=== PATIENT | female | born 1995 | race Two or more races ===

== ENCOUNTER 2019-09-12 00:01 | Emergency (ER) | payer OTHER ==
[~2019-09-12] VITALS: Ht 165.1 cm; Wt 52.2 kg
--- NOTE | 2019-09-12 00:03 | NUR ---
Dr. Gregory at bedside for MSE
[2019-09-12 00:42] LABS: BASOPHILS # (AUTO) 0.1 K/uL (0.0-8.0); BASOPHILS % (AUTO) 0.8 % (0.0-2.0); EOSINOPHILS # (AUTO) 0.1 K/uL (0.0-0.7); EOSINOPHILS % (AUTO) 0.6 % (0.0-7.0); HEMATOCRIT 41.3 % (31.2-41.9); HEMOGLOBIN 14.1 g/dL (10.9-14.3); LYMPHOCYTES # (AUTO) 1.8 K/uL (20.0-40.0); LYMPHOCYTES % (AUTO) 14.3 % (20.5-51.5); MEAN CORPUSCULAR HEMOGLOBIN 30.7 uug (24.7-32.8); MEAN CORPUSCULAR HGB CONC 34 g/dL (32.3-35.6); MEAN CORPUSCULAR VOLUME 89.9 fL (75.5-95.3); MONOCYTES # (AUTO) 1.8 K/uL (2.0-10.0); MONOCYTES % (AUTO) 14.6 % (0.0-11.0); NEUTROPHILS # (AUTO) 8.8 K/uL (1.8-8.9); NEUTROPHILS % (AUTO) 69.7 % (38.5-71.5); PLATELET COUNT (AUTO) 373 K/uL (179-408); RED BLOOD CELL COUNT(AUTO) 4.59 MIL/uL (3.63-4.92); WHITE BLOOD COUNT (AUTO) 12.6 K/uL (3.8-11.8)
[2019-09-12 00:43] LABS: CARBON DIOXIDE 30 mmol/L (21-32); CHLORIDE 101 mmol/L (98-107); CREATININE 0.9 mg/dL (0.6-1.3); GLUCOSE 72 mg/dL (74-106); POTASSIUM 4.4 mmol/L (3.5-5.1); UREA NITROGEN, BLOOD 16 mg/dL (7-18)
[2019-09-12 00:57] LABS: ALANINE AMINOTRANSFERASE 19 U/L (14-59); ALKALINE PHOSPHATASE 84 U/L (50-136); ASPARTATE AMINOTRANSFERASE 19 U/L (15-37); BILIRUBIN,DIRECT 0.2 mg/dL (0.0-0.2); BILIRUBIN,TOTAL 1.3 mg/dL (0.2-1.0); TOTAL PROTEIN, SERUM 8.2 g/dL (6.4-8.2)
[2019-09-12 00:58] LABS: ACETAMINOPHEN < 2.0 ug/mL (10-30)
[2019-09-12] MEDS ORDERED: LORAZEPAM 2 MG/1 ML VIAL IM ONE (01:00)
[2019-09-12] MEDS ORDERED: HALOPERIDOL LACTATE 5 MG/1 ML VIAL IM ONE (01:00)
[2019-09-12] MEDS ORDERED: HALOPERIDOL LACTATE 5 MG/1 ML VIAL ONE (01:04)
[2019-09-12] MEDS ORDERED: LORAZEPAM 2 MG/1 ML VIAL ONE (01:04)
[2019-09-12 01:20] LABS: ETHANOL < 3 MG/DL (0-0)
--- NOTE | 2019-09-12 01:35 | NUR ---
pt out of er for xray and ct
--- NOTE | 2019-09-12 01:56 | NUR ---
Pt back from radiology.
--- NOTE | 2019-09-12 02:31 | NUR ---
pt in bed asleep, arousable. no s/s of distress respirations even and unlabored SR up. bed locked, lowest position. will continue to monitor pt
--- NOTE | 2019-09-12 04:35 | NUR ---
pt in bed asleep. arousable no s/s of distress respirations even and unlabored safety precautions in place. bed locked, lowest position will continue to monitor pt
--- NOTE | 2019-09-12 05:07 | NUR ---
pt provided food and water per pt's request
--- NOTE | 2019-09-12 06:22 | NUR ---
Patient given written and verbal discharge instructions. Patient verbalizes understanding of instructions. Patient is ambulatory with steady gait. Refuses offer of longterm placement. Patient given list of available shelters in surrounding area. pt requested to be dropped off at friend's house pt was provided with food, clothing, and taxi voucher all belongings with pt no s/s of distress
[2019-09-12 06:24] VITALS: BP 93/56
== END 2019-09-12 06:22 | disposition home or self-care (01) ==
LOC: EDBD 00:05 → ER 00:05
DX: F16.121 Hallucinogen abuse with intoxication with delirium (principal); R40.2421 Glasgow coma scale score 9-12, in the field [EMT or ambulance]; R00.0 Tachycardia, unspecified
CPT/HCPCS: 36415; 70450; 71045; 80048; 80076; 80307; 80329; 85025; 93005; 96372; 99285; G0480; J1630; J2060; A4663; C1758